=== PATIENT | female | born 1990 | race African-American/Black ===

== ENCOUNTER 2021-06-30 09:36 | Emergency (ER) | payer OTHER, SELFPAY ==
[2021-06-30 10:38] LABS: #Eosinphils 0.1 10x3/uL (0.0-0.5); #Monocytes 0.4 10x3/uL (0.0-1.1); #Neutrophils 3.2 10x3/uL (1.5-8.4); %Basophils 0.3 % (0.0-2.0); %Eosinophils 1.8 % (0.0-6.0); %Lymphocytes 37.5 % (18.0-47.0); %Monocytes 6.8 % (0.0-10.0); %Neutrophils 53.1 % (40.0-75.0); Hemoglobin 8.4 g/dL (12.0-15.5); Mean Corpuscular HGB CONC 32.3 g/dL (32.0-36.0); Mean Corpuscular Hemoglobin 29.2 pg (27.0-33.0); Mean Corpuscular Volume 90.3 fl (81.6-98.3); Mean Platelet Volume 10.5 fl (7.4-10.4); Platelet Count 302 10x3/uL (150-450); Red Blood Cell (RBC) Count 2.88 10x6/uL (3.90-5.03)
[2021-06-30 10:46] LABS: BHCG - Serum Negative (NEGATIVE); Pregs Control Background? CLEAR/WHITE (CLR/WHITE); Pregs Control Bar Appear? YES (CONTROL BAR)
[2021-06-30 10:56] LABS: ALT (SGPT) 7 U/L (8-55); AST (SGOT) 10 U/L (5-34); Albumin 3.9 g/dL (3.5-5.0); Alkaline Phosphatase 59 U/L (40-110); Anion Gap 12 mmol/L (10-20); BUN (Urea Nitrogen) 7 mg/dL (7.0-18.7); Bilirubin, Total 0.3 mg/dL (0.2-1.2); Calc. Creatinine Clearance 0 mL/min (70-130); Calcium 8.6 mg/dL (7.8-10.44); Carbon Dioxide 24 mmol/L (22-29); Chloride 107 mmol/L (98-107); Globulin 3.2 g/dL (2.4-3.5); Glucose 96 mg/dL (70-105); Protein, Total 7.1 g/dL (6.0-8.3); Sodium 139 mmol/L (136-145)
== END 2021-06-30 13:45 | disposition home or self-care (01) ==
LOC: CSHERS 09:36
DX: N93.8 Other specified abnormal uterine and vaginal bleeding (principal)
CPT/HCPCS: 36415; 76856; 80053; 84703; 85025; 86850; 86900; 86901

== ENCOUNTER 2022-02-06 16:36 | Day surgery (SDC) | payer OTHER ==
[2022-02-06] MEDS ORDERED: hydrALAZINE 20 MG/ML VIAL SLOW IVP PRN (18:16)
[2022-02-06 18:50] LABS: Bilirubin Neg (Negative); Blood, Urine 10 (Negative); Glucose, Urine (Dipstick) Normal (Negative); Ketone, Urine 5 mg/dL (Negative); Leukocyte 25 (Negative); Nitrite Negative (Negative); Protein, Urine (Dipstick) 30 mg/dl (Neg-Trace); Urobilinogen Normal mg/dL (Less than 2); pH, Urine 6.5 (5.0-9.0)
[2022-02-06 19:06] LABS: RBC/HPF 0-3 HPF (0-3); Squamous Epithelial 0-3 HPF (0-3)
[2022-02-06 19:07] LABS: Bacteria/HPF 4+ HPF (None Seen); Mucous/LPF 2+ LPF (<2+)
== END 2022-02-06 19:53 | disposition home or self-care (01) ==
LOC: CSHLD/OP 16:36
PROVIDERS: ATTEND Obstetrics & Gynecology
DX: O23.43 Unspecified infection of urinary tract in pregnancy, third trimester (principal); N39.0 Urinary tract infection, site not specified; O23.593 Infection of other part of genital tract in pregnancy, third trimester; B96.89 Other specified bacterial agents as the cause of diseases classified elsewhere; Z3A.28 28 weeks gestation of pregnancy
CPT/HCPCS: 81001; 87077; 87086; 87186; 87480; 87510; 87660; 99285

== ENCOUNTER 2022-04-21 19:30 | Inpatient (IN) | payer OTHER ==
[~2022-04-21 19:30] MED LIST: Bupivacaine 0.25% HCL 30 ML VIAL ONE; Terbutaline Sulfate 1 MG/ML VIAL ONE
[2022-04-21] MEDS ORDERED: Ibuprofen 800 MG TAB PO PRN (21:41)
[2022-04-21] MEDS ORDERED: Diphenoxylate HCl/Atropine Tablet PO PRN (21:41)
[2022-04-21] MEDS ORDERED: Lidocaine 1% (PF) 30 ML VIAL SC PRN (21:41)
[2022-04-21] MEDS ORDERED: Ondansetron PF 4 MG/2 ML Vial IVP PRN (21:41)
[2022-04-21] MEDS ORDERED: NS w/ Oxytocin 30 units 500 ML IV SCH ×2 (21:41)
[2022-04-21] MEDS ORDERED: hydrALAZINE 20 MG/ML VIAL SLOW IVP PRN (21:41)
[2022-04-21] MEDS ORDERED: Methylergonovine 0.2 MG/ML VIAL IM PRN (21:41)
[2022-04-21] MEDS ORDERED: Carboprost 250 MCG/ML AMP IM PRN (21:41)
[2022-04-21] MEDS ORDERED: HYDROcodone/Acetaminophen 5/325 mg Tablet PO PRN (21:41)
[2022-04-21] MEDS ORDERED: Lactated Ringer's 1,000 ML IV SCH (21:41)
[2022-04-21] MEDS ORDERED: Misoprostol 200 MCG TAB PR PRN (21:41)
[2022-04-21] MEDS ORDERED: Acetaminophen 500 MG TAB PO PRN (21:41)
[2022-04-21] MEDS ORDERED: Promethazine HCl 25 MG/ML VIAL IM PRN (21:41)
[2022-04-21 23:41] LABS: Mean Corpuscular HGB CONC 31.6 g/dL (32.0-36.0); Mean Corpuscular Hemoglobin 25.1 pg (27.0-33.0); Mean Corpuscular Volume 79.3 fl (81.6-98.3); Mean Platelet Volume 11.6 fl (7.4-10.4); Platelet Count 215 10x3/uL (150-450); RBC Distribution Width 19.2 % (11.5-14.5); Red Blood Cell (RBC) Count 3.19 10x6/uL (3.90-5.03); White Blood Cell (WBC) Count 8.7 10x3/uL (3.5-10.5)
[2022-04-22 00:02] VITALS: BMI 44.0
[2022-04-22 00:08] LABS: HBSAg Index 0.12 S/CO (0-0.99); Hep B Surf Ag Non-Reactive S/CO (NonReactive)
[2022-04-22 00:09] LABS: Syphilis Antibody Nonreactive (Nonreactive); Syphilis Antibody Index 0.06 S/CO (<1.00 Non-Reactive)
[2022-04-22] MEDS ORDERED: Penicillin G Potassium 5 MILL.UNITS in Sodium Chloride 0.9% 100 ML IVPB SCH (00:15)
[2022-04-22] MEDS: Misoprostol 100 MCG TAB PO SCH ×2 (00:33→06:16)
[2022-04-22] MEDS: Butorphanol Tartrate 1 MG/ML VIAL SLOW IVP PRN ×2 (04:50→10:18)
[2022-04-22 05:00] LABS: SARS-CoV-2 NAA Rapid Test Not Detected (NotDetected)
[2022-04-22] MEDS ORDERED: Penicillin G 2.5 MILL.units 2.5 MILL.UNITS in Premix Bag 1 BAG IVPB SCH (05:00)
[2022-04-22] MEDS ORDERED: Fentanyl 2 mcg/Bup 0.1% Cadd 100 ML ONE (10:54)
[2022-04-22] MEDS ORDERED: ePHEDrine Sulfate 50 MG/10 ML VIAL SLOW IVP PRN (12:05)
[2022-04-22] MEDS ORDERED: Acetaminophen 325 MG TAB PO PRN (12:05)
[2022-04-22] MEDS ORDERED: Moisturizing Cream (Eucerin) 113 GM JAR TOP PRN (12:05)
[2022-04-22] MEDS ORDERED: diphenhydrAMINE 50 MG/ML VIAL IVP PRN (12:05)
[2022-04-22] MEDS ORDERED: Naloxone HCl 0.4 mg/ml Vial IVP PRN ×2 (12:05)
[2022-04-22] MEDS ORDERED: Ondansetron PF 4 MG/2 ML Vial IVP PRN ×2 (12:05→18:29)
[2022-04-22] MEDS ORDERED: Promethazine HCl 25 MG/ML VIAL IM PRN ×2 (12:05→18:29)
[2022-04-22] MEDS ORDERED: Lactated Ringer's 500 ML IV PRN (12:09)
[2022-04-22] MEDS ORDERED: Communication Order-Pharmacy FS SCH (12:15)
[2022-04-22] MEDS ORDERED: Fentanyl 2 mcg/Bupivacaine 0.1% Cassette 100 ML EPIDURAL SCH (12:15)
[2022-04-22] MEDS ORDERED: Benzocaine-Menthol 82.5 ML CAN TOP PRN (18:29)
[2022-04-22] MEDS ORDERED: HYDROcodone/Acetaminophen 5/325 mg Tablet PO PRN (18:29)
[2022-04-22] MEDS ORDERED: hydrALAZINE 20 MG/ML VIAL SLOW IVP PRN (18:29)
[2022-04-22] MEDS ORDERED: Milk Of Magnesia 30 ML UDCUP PO PRN (18:29)
[2022-04-22] MEDS ORDERED: Bisacodyl 10 MG SUPP PR PRN (18:29)
[2022-04-22] MEDS ORDERED: Boostrix 0.5 ML (Tdap) VIAL (>/=7 yrs of age) IM ONE (18:29)
[2022-04-22] MEDS ORDERED: NS w/ Oxytocin 30 units 500 ML IV SCH (18:29)
[2022-04-22] MEDS ORDERED: diphenhydrAMINE 25 MG CAP PO PRN (18:29)
[2022-04-22] MEDS ORDERED: Ferrous Sulfate 325 MG TAB PO SCH (21:00)
[2022-04-22] MEDS: Docusate 100 MG CAP PO SCH (21:40)
[2022-04-22] MEDS: Ibuprofen 800 MG TAB PO SCH (21:40)
[2022-04-23] MEDS: Ibuprofen 800 MG TAB PO SCH ×2 (06:14→14:13)
[2022-04-23] MEDS ORDERED: Prenatal Vitamin 1 TAB PO SCH (09:00)
[2022-04-23] MEDS: Misoprostol 100 MCG TAB PO SCH (09:33)
[2022-04-23] MEDS: Ferrous Sulfate 325 MG TAB PO SCH ×2 (09:36→18:38)
[2022-04-23] MEDS: Docusate 100 MG CAP PO SCH (09:36)
[2022-04-23 17:33] VITALS: BP 134/85; TEMP 98.2
== END 2022-04-23 19:15 | disposition home or self-care (01) | DRG 807 ==
LOC: CSHLD 20:59 → CSHPP 04-22 19:30
PROVIDERS: ADMIT Family Medicine; ATTEND Family Medicine
PROC: 3E0P7VZ Introduction of Hormone into Female Reproductive, Via Natural or Artificial Opening (ICD-10-PCS; principal; 2022-04-21)
PROC: 10907ZC Drainage of Amniotic Fluid, Therapeutic from Products of Conception, Via Natural or Artificial Opening (ICD-10-PCS; 2022-04-21)
PROC: 10E0XZZ Delivery of Products of Conception, External Approach (ICD-10-PCS; 2022-04-22)
DX: O69.81X0 Labor and delivery complicated by cord around neck, without compression, not applicable or unspecified (principal); Z37.9 Outcome of delivery, unspecified; Z3A.39 39 weeks gestation of pregnancy; Z20.822 Contact with and (suspected) exposure to COVID-19
CPT/HCPCS: 51702; 85027; 86780; 86850; 86900; 86901; 87340; J0595; J2590; J3105; J7120; S0020; U0002